=== PATIENT | male | born 1940 | race Caucasian/White ===

== ENCOUNTER 2019-12-19 08:48 | Outpatient (CLI) | payer MEDICARE, BC ==
--- NOTE | 2019-12-19 10:07 | MRI ---
EXAM: MRI of the pelvis/prostate without and with contrast HISTORY: Prostate cancer COMPARISON: None TECHNIQUE: Multiplanar multisequence MR images were obtained of the pelvis without and with IV contra st. Evaluation of this exam was performed with a [employer] workstation. FINDINGS: Central gland: Moderate hypertrophy of the central gland consistent with BPH. Prostate volume is neal mated at 36 mL No suspicious low T2 signal lesion is seen. Peripheral zone: High T1 signal is seen before contrast consistent with blood products from recent bi opsy. No restricted diffusion is seen. No low signal on ADC map. Seminal vesicles: Intact without abnormality Neurovascular bundles: Intact Pelvic lymph nodes: No pelvic adenopathy Other visualized intrapelvic structures: There is a 2.2 cm right inguinal hernia containing small bow el. Osseous structures: No marrow signal abnormality IMPRESSION: 1. PI-RADS Category 2-low likelihood that a clinically significant cancer is present.. This exam is s lightly limited secondary to retained blood products in the peripheral zone of the prostate. 2. Right inguinal hernia
== END 2019-12-19 08:49 | disposition home or self-care (01) ==
LOC: TBSIIMAG 08:48
PROVIDERS: ATTEND Urology
DX: C61 Malignant neoplasm of prostate (principal)
CPT/HCPCS: 72197; 82565

== ENCOUNTER 2022-02-11 09:56 | Outpatient (CLI) | payer MEDICARE | END 2022-02-11 09:57 | disposition home or self-care (01) | LOC: BICCT 09:56 | PROVIDERS: ATTEND Urology | DX: R31.0 Gross hematuria (principal); N28.1 Cyst of kidney, acquired; K86.89 Other specified diseases of pancreas; I77.811 Abdominal aortic ectasia; R93.421 Abnormal radiologic findings on diagnostic imaging of right kidney | CPT/HCPCS: 74176 ==

== ENCOUNTER 2023-10-04 10:48 | Outpatient (CLI) | payer MEDICARE ==
[2023-10-04 12:02] LABS: #Eosinphils 0.46 10x3/uL (0.0-0.5); #Neutrophils 4.21 10x3/uL (1.5-8.4); %Basophils 1.5 % (0.0-2.0); %Lymphocytes 17.8 % (18.0-47.0); %Monocytes 9.1 % (0.0-10.0); %Neutrophils 64.3 % (40.0-75.0); Hematocrit 30.4 % (38.8-50.0); Hemoglobin 9.7 g/dL (13.5-17.5); Mean Corpuscular HGB CONC 31.9 g/dL (32.0-36.0); Mean Corpuscular Hemoglobin 24.6 pg (27.0-33.0); Mean Platelet Volume 10.4 fl (7.4-10.4); Platelet Count 165 10x3/uL (150-450); RBC Distribution Width 15.9 % (11.5-14.5); Red Blood Cell (RBC) Count 3.95 10x6/uL (4.32-5.72); White Blood Cell (WBC) Count 6.6 10x3/uL (3.5-10.5)
[2023-10-04 12:32] LABS: ALT (SGPT) 13 U/L (8-55); AST (SGOT) 16 U/L (5-34); Albumin 3.5 g/dL (3.4-4.8); Alkaline Phosphatase 92 U/L (40-110); Anion Gap 16 mmol/L (10-20); BUN (Urea Nitrogen) 57 mg/dL (8.4-25.7); Bilirubin, Total 0.3 mg/dL (0.2-1.2); Calc. Creatinine Clearance 0 mL/min (70-130); Calcium 9.5 mg/dL (7.8-10.44); Carbon Dioxide 23 mmol/L (23-31); Chloride 105 mmol/L (98-107); Estimated GFR 27; Globulin 3.7 g/dL (2.4-3.5); Glucose 104 mg/dL (83-110); Potassium 3.9 mmol/L (3.5-5.1); Protein, Total 7.2 g/dL (5.8-8.1); Sodium 140 mmol/L (136-145)
== END 2023-10-04 10:49 | disposition home or self-care (01) ==
LOC: LABBT 10:48
PROVIDERS: ATTEND Surgery
DX: Z01.818 Encounter for other preprocedural examination (principal); K40.90 Unilateral inguinal hernia, without obstruction or gangrene, not specified as recurrent
CPT/HCPCS: 80053; 85025; 93005; 93010

== ENCOUNTER → 2023-10-07 | Day surgery (SDC) | payer MEDICARE ==
[2023-10-04 11:16] VITALS: BMI 26.6
[~2023-10-07] MED LIST: Bupivacaine 0.25% HCL 30 ML VIAL ONE; CEFAZOLIN 2 GM VIAL ONE; Dexamethasone 4 mg/ml Vial ONE; EPINEPHrine 1 MG/ML VIAL ONE; Esmolol 100 MG/10 ML VIAL ONE; Etomidate 40 MG (20 mL) VIAL ONE; Famotidine/PF 20 mg/2ml Vial ONE; Lidocaine 1% PF 5 ML VIAL ONE; Ondansetron PF 4 MG/2 ML Vial ONE; PROPOFOL 20 ML ONE; Rocuronium Bromide 10 MG/ML (10ML VIAL) ONE; SUGAMMADEX SODIUM 200 MG/2 ML VIAL ONE; Sodium Chloride 0.9% 100 ML ONE; fentaNYL 50 mcg/mL 1 mL Vial ONE; fentaNYL PF 100 MCG/2 ML SYRINGE ONE
== END | disposition home or self-care (01) ==
LOC: SDC 10:26
PROVIDERS: ATTEND Surgery
PROC: 0YU50JZ Supplement Right Inguinal Region with Synthetic Substitute, Open Approach (ICD-10-PCS; principal; 2023-10-07)
DX: K40.90 Unilateral inguinal hernia, without obstruction or gangrene, not specified as recurrent (principal); I10 Essential (primary) hypertension; E78.5 Hyperlipidemia, unspecified; K21.9 Gastro-esophageal reflux disease without esophagitis; I25.5 Ischemic cardiomyopathy; C61 Malignant neoplasm of prostate; J45.909 Unspecified asthma, uncomplicated; I71.20 Thoracic aortic aneurysm, without rupture, unspecified; Z79.82 Long term (current) use of aspirin; Z79.899 Other long term (current) drug therapy; Z79.02 Long term (current) use of antithrombotics/antiplatelets; Z87.891 Personal history of nicotine dependence; Z98.890 Other specified postprocedural states; Z88.2 Allergy status to sulfonamides
CPT/HCPCS: 49505; A6258; C1781; J0171; J3010; J0665; J1100; J2405; J2704; J3490; S0028

== ENCOUNTER 2023-12-22 12:09 | Outpatient (CLI) | payer MEDICARE | END 2023-12-22 12:10 | disposition home or self-care (01) | LOC: ULT 12:09 | PROVIDERS: ATTEND Urology | DX: N28.1 Cyst of kidney, acquired (principal); C61 Malignant neoplasm of prostate; N18.9 Chronic kidney disease, unspecified; N40.1 Benign prostatic hyperplasia with lower urinary tract symptoms; R35.0 Frequency of micturition; R35.1 Nocturia; N13.9 Obstructive and reflux uropathy, unspecified; N39.43 Post-void dribbling | CPT/HCPCS: 76770 ==

== ENCOUNTER 2025-04-28 14:48 | Inpatient (IN) | payer MEDICARE ==
[2025-04-28 15:19] LABS: Analyzer IN Cardio ER; Base Excess -18.2 mEq/L (-2.0 to +3.0); Calcium, Ionized (venous) 1.02 mmol/L (1.16-1.32); Chloride (VBG) 89 mmol/L (98-106); Hematocrit-VBG 33 % (42.0-52.0); Hemoglobin (Hb) 11.3 g/dL (12.6-17.4); Potassium (VBG) 4.40 mmol/L (3.70-5.30); Sodium 129 mmol/L (133-146)
[2025-04-28 15:22] LABS: Actual Bicarbonate (HCO3v) 10.8 mEq/L (22-28)
[2025-04-28] MEDS ORDERED: EPINEPHrine 1 MG/10 ML Abboject SYRINGE ONE (15:32)
[2025-04-28] MEDS ORDERED: Etomidate 40 MG (20 mL) VIAL ONE (15:34)
[2025-04-28] MEDS ORDERED: Rocuronium Bromide 10 MG/ML (10ML VIAL) ONE (15:34)
[2025-04-28] MEDS ORDERED: Norepinephrine 8 MG/0.9% NS 250 ML ONE (15:39)
[2025-04-28 15:48] LABS: #Basophils 0.06 10x3/uL (0.0-0.2); #Eosinophils 0.09 10x3/uL (0.0-0.7); #Monocytes 0.65 10x3/uL (0.11-0.59); #Neutrophils 18.43 10x3/uL (1.40-6.50); %Basophils 0.3 % (0.0-1.0); %Eosinophils 0.4 % (0.0-10.0); %Lymphocytes 5.4 % (21.0-51.0); %Monocytes 3.0 % (0.0-10.0); %Neutrophils 86.3 % (42.0-75.0); Hematocrit 33.0 % (42.0-52.0); Hemoglobin 10.1 g/dL (14.0-18.0); Mean Corpuscular Hemoglobin 29.4 pg (27.0-31.0); Mean Corpuscular Volume 95.9 fL (78.0-98.0); Platelet Count 130 10x3/uL (130-400); Red Blood Cell (RBC) Count 3.44 mill/uL (4.70-6.10); White Blood Cell (WBC) Count 21.38 10x3/uL (4.8-10.8)
[2025-04-28] MEDS ORDERED: Albuterol 2.5 MG (3 mL) NEB ONE (15:56)
[2025-04-28] MEDS ORDERED: Albuterol 2.5 MG (0.5 mL) NEB ONE (15:56)
[2025-04-28 15:59] LABS: Lipase 1143 U/L (8-78)
[2025-04-28] MEDS ORDERED: Dextrose 50% Abboject 50 ML SYRINGE ONE (15:59)
[2025-04-28 16:00] LABS: ALT (SGPT) 992 U/L (Less than 45); AST (SGOT) 1614 U/L (11-34); Albumin 2.3 g/dL (3.1-4.5); Alkaline Phosphatase 147 U/L (40-110); Anion Gap 40 mmol/L (10-20); BUN (Urea Nitrogen) 87 mg/dL (8.4-25.7); Bilirubin, Total 3.1 mg/dL (0.3-1.2); Calc. Creatinine Clearance 0 mL/min (70-130); Calcium 8.3 mg/dL (7.8-10.44); Carbon Dioxide 8 mmol/L (23-31); Chloride 91 mmol/L (98-107); Globulin 3.7 g/dL (2.4-3.5); Glucose 42 mg/dL (83-110); Potassium 4.6 mmol/L (3.5-5.1); Sodium 134 mmol/L (136-145)
[2025-04-28] MEDS ORDERED: Sodium Bicarb 50 MEQ/50 ML Abboject 8.4% SYRINGE ONE (16:01)
[2025-04-28 16:04] LABS: Bacteria/HPF Rare-Few HPF (None Seen); CAUTI Indications for Culture Alt mental st,lethar; Glucose, Urine (Dipstick) Normal (Negative); Leukocyte Negative Leu/uL (Negative); Protein, Urine (Dipstick) 30 mg/dL (Neg-Trace); RBC/HPF 0-3 HPF (0-3); Specific Gravity, Urine 1.016 (1.002-1.036); WBC/HPF 0-3 HPF (0-3)
[2025-04-28 16:05] LABS: Urine Culture Reflex No No
[2025-04-28 16:14] LABS: Analyzer IN Cardio ER; Base Excess (BEa) -13.6 mEq/L (-2.0 to +3.0); CO2 Tension 33.0 mmHg (35.0-45.0); Calcium, Ionized (arterial) 0.91 mmol/L (1.12-1.30); Hematocrit-ABG 27 % (42.0-52.0); Hemoglobin (Hb) 9.3 g/dL (14.0-18.0); O2 Tension (PaO2), arterial 274.2 mmHg (> 60.0); Potassium - ABG Lab 4.27 mmol/L (3.70-5.30); pH, Arterial 7.214 (7.35-7.45)
[2025-04-28 16:16] LABS: Actual Bicarbonate (HCO3a) 13.0 mEq/L (22-28); Puncture Site Right Radial artery
[2025-04-28] MEDS ORDERED: Cefepime 2 GM VIAL ONE (16:20)
[2025-04-28 16:46] LABS: INR-International Normal Ratio 2.2; Prothrombin Time 24.7 sec (12.0-14.7)
[2025-04-28 16:47] LABS: PTT 32.9 sec (22.9-36.1)
[2025-04-28] MEDS ORDERED: Ondansetron PF 4 MG/2 ML Vial IVP PRN (17:43)
[2025-04-28 19:05] LABS: Platelet Count 95 10x3/uL (130-400)
[2025-04-28 19:16] LABS: INR-International Normal Ratio 3.7; Prothrombin Time 36.9 sec (12.0-14.7)
[2025-04-28 19:17] LABS: PTT 51.1 sec (22.9-36.1)
[2025-04-28 19:18] LABS: CRP, High Sensitivity at Bryan 11.09 mg/dL (< or = 0.5)
[2025-04-28 19:19] LABS: CK (CPK) 289.0 U/L (30-200)
[2025-04-28 19:21] LABS: Fibrinogen 102 mg/dL (253-463)
[2025-04-28] MEDS: Vasopressin In 0.9 % NaCl 100 ML IV SCH (19:30)
[2025-04-28 19:33] LABS: D-Dimer Test Greater than 20.00 mcg/mL (0.27-0.43)
[2025-04-28] MEDS: Albumin 25% 25 GM (100 mL) BOT IVPB SCH (20:31)
[2025-04-28] MEDS: Dextrose 50% Abboject 50 ML SYRINGE SLOW IVP PRN (22:05)
[2025-04-28] MEDS ORDERED: Glucagon 1 MG/ML KIT IM PRN (22:07)
[2025-04-28 22:51] VITALS: BMI 26.9
[2025-04-28] MEDS ORDERED: Vancomycin Dose by Levels Sliding Scale (Wt 71-99) FS SCH (23:30)
[2025-04-28 23:34] LABS: ALT (SGPT) 1387 U/L (Less than 45); AST (SGOT) 3497 U/L (11-34); Albumin 2.1 g/dL (3.1-4.5); Alkaline Phosphatase 127 U/L (40-110); Anion Gap 38 mmol/L (10-20); BUN (Urea Nitrogen) 78 mg/dL (8.4-25.7); Bilirubin, Total 3.2 mg/dL (0.3-1.2); Calc. Creatinine Clearance 12 mL/min (70-130); Calcium 7.1 mg/dL (7.8-10.44); Carbon Dioxide 8 mmol/L (23-31); Chloride 94 mmol/L (98-107); Globulin 2.5 g/dL (2.4-3.5); Glucose 136 mg/dL (83-110); Potassium 5.5 mmol/L (3.5-5.1); Sodium 134 mmol/L (136-145)
[2025-04-28] MEDS: Vancomycin 1.5 GM / NS 500ML VIAL-2-BAG IVPB SCH (23:36)
[2025-04-28] MEDS: Dextrose 50% Abboject 50 ML SYRINGE ONE (23:37)
[2025-04-28 23:42] LABS: HBSAB Concentration Less than 8.00 mIU/mL; Hep B Core Total Ab NONREACTIVE (NonReactive); Hep B Core Total Index 0.22 S/CO (0-0.79); Hep B Surf Ag NONREACTIVE S/CO (NonReactive); Hep C IgG Ab NONREACTIVE S/CO (NonReactive); Hep C Index 0.38 S/CO (0-0.79)
[2025-04-28] MEDS: Sodium Bicarb 50 MEQ/50 ML Abboject 8.4% SYRINGE IVP SCH (23:50)
[2025-04-29] MEDS: Norepinephrine 8 MG/0.9% NS 250 ML IVPB SCH (00:10)
[2025-04-29] MEDS ORDERED: Heparin 10,000 UNITS/ 10 ML VIAL FS SCH (00:30)
[2025-04-29] MEDS ORDERED: Heparin 10,000 UNITS/ 10 ML VIAL FS PRN (00:30)
[2025-04-29 01:00] LABS: Base Excess (BEa) -15.8 mEq/L (-2.0 to +3.0); CO2 Tension 33.3 mmHg (35.0-45.0); Calcium, Ionized (arterial) 0.81 mmol/L (1.12-1.30); Hematocrit-ABG 24 % (42.0-52.0); Hemoglobin (Hb) 8.1 g/dL (14.0-18.0); O2 Tension (PaO2), arterial 368.0 mmHg (> 60.0); Potassium - ABG Lab 5.33 mmol/L (3.70-5.30)
[2025-04-29] MEDS: Phenylephrine 40 MG/NS 250 ML 250 ML IVPB SCH (01:01)
[2025-04-29 01:02] LABS: ALV-art Gradient 303.375 mmHg (0-20); Actual Bicarbonate (HCO3a) 11.6 mEq/L (22-28); Puncture Site Arterial Line; pH, Arterial 7.159 (7.35-7.45)
[2025-04-29] MEDS: Sodium Bicarb 50 MEQ/50 ML Abboject 8.4% SYRINGE IVP SCH ×2 (01:15→01:45)
[2025-04-29] MEDS: Sodium Bicarb 50 MEQ/50 ML Abboject 8.4% SYRINGE ONE (01:45)
[2025-04-29] MEDS: Hydrocortisone Sod Succ/PF 100 mg/2 ml Vial ONE (01:55)
[2025-04-29] MEDS: Hydrocortisone Sod Succ/PF 100 mg/2 ml Vial IVP SCH (02:15)
[2025-04-29 04:57] LABS: INR-International Normal Ratio 5.9; PTT 78.6 sec (22.9-36.1); Prothrombin Time 53.2 sec (12.0-14.7)
[2025-04-29 04:58] LABS: #Basophils 0.06 10x3/uL (0.0-0.2); #Eosinophils Less than 0.03 10x3/uL (0.0-0.7); #Monocytes 0.88 10x3/uL (0.11-0.59); #Neutrophils 19.59 10x3/uL (1.40-6.50); %Basophils 0.3 % (0.0-1.0); %Eosinophils 0.0 % (0.0-10.0); %Lymphocytes 4.9 % (21.0-51.0); %Monocytes 3.9 % (0.0-10.0); %Neutrophils 86.2 % (42.0-75.0); Hematocrit 24.6 % (42.0-52.0); Hemoglobin 7.4 g/dL (14.0-18.0); Mean Corpuscular Hemoglobin 30.1 pg (27.0-31.0); Mean Corpuscular Volume 100.0 fL (78.0-98.0); Platelet Count 37 10x3/uL (130-400); Red Blood Cell (RBC) Count 2.46 mill/uL (4.70-6.10); White Blood Cell (WBC) Count 22.74 10x3/uL (4.8-10.8)
[2025-04-29 05:04] LABS: CRP, High Sensitivity at Bryan 6.53 mg/dL (< or = 0.5)
[2025-04-29 05:07] LABS: Fibrinogen 65 mg/dL (253-463)
[2025-04-29 05:13] LABS: Lipase 497 U/L (8-78)
[2025-04-29 05:15] LABS: ALT (SGPT) 2196 U/L (Less than 45); AST (SGOT) Greater than 4001 U/L (11-34); Albumin 2.1 g/dL (3.1-4.5); Alkaline Phosphatase 123 U/L (40-110); Anion Gap 43 mmol/L (10-20); BUN (Urea Nitrogen) 72 mg/dL (8.4-25.7); Bilirubin, Total 3.4 mg/dL (0.3-1.2); Calc. Creatinine Clearance 13 mL/min (70-130); Calcium 7.2 mg/dL (7.8-10.44); Carbon Dioxide 9 mmol/L (23-31); Cardiac Risk 6.2 (Less than 4.5); Chloride 96 mmol/L (98-107); Cholesterol 37 mg/dl (< 200 Desired); Globulin 2.1 g/dL (2.4-3.5); Glucose 60 mg/dL (83-110); HDL Cholesterol 6 mg/dL (>60 Neg Risk); Potassium 6.0 mmol/L (3.5-5.1); Sodium 142 mmol/L (136-145); Triglycerides 174 mg/dL (Less than 150)
[2025-04-29] MEDS ORDERED: Hydrocortisone Sod Succ/PF 100 mg/2 ml Vial IVP SCH (08:00)
[2025-04-29] MEDS ORDERED: Aspirin 81 mg Enteric Coated Tablet PO SCH (09:00)
[2025-04-29] MEDS ORDERED: Mupirocin 1 GM TUBE NASAL DECOLONIZATION NASAL SCH (09:00)
[2025-04-29] MEDS ORDERED: Vancomycin 1 GM in Premix 1 BAG IVPB SCH (09:00)
[2025-04-29] MEDS ORDERED: Pantoprazole 40 MG VIAL IVP SCH (09:00)
[2025-05-03] MEDS ORDERED: FLU (Fluad Triv) 25-26 (65UP)PF 45 MCG/0.5 ML Syringe IM ONE (03:15)
[2025-05-03] MEDS ORDERED: PNEUMOC 20-VAL CONJ-DIP CRM/PF 0.5 ML SYRINGE IM ONE (09:00)
== END 2025-04-29 05:00 | disposition expired | DRG 871 ==
LOC: ERS 14:48 → CCU 17:49
PROVIDERS: ADMIT Student in an Organized Health Care Education/Training Program; ATTEND Student in an Organized Health Care Education/Training Program
PROC: 5A1935Z Respiratory Ventilation, Less than 24 Consecutive Hours (ICD-10-PCS; principal; 2025-04-28)
PROC: 0BH17EZ Insertion of Endotracheal Airway into Trachea, Via Natural or Artificial Opening (ICD-10-PCS; 2025-04-28)
PROC: 0T9B70Z Drainage of Bladder with Drainage Device, Via Natural or Artificial Opening (ICD-10-PCS; 2025-04-28)
PROC: 0DH67UZ Insertion of Feeding Device into Stomach, Via Natural or Artificial Opening (ICD-10-PCS; 2025-04-28)
PROC: 5A1D70Z Performance of Urinary Filtration, Intermittent, Less than 6 Hours Per Day (ICD-10-PCS; 2025-04-28)
PROC: 30233L1 Transfusion of Nonautologous Fresh Plasma into Peripheral Vein, Percutaneous Approach (ICD-10-PCS; 2025-04-28)
PROC: 30233K1 Transfusion of Nonautologous Frozen Plasma into Peripheral Vein, Percutaneous Approach (ICD-10-PCS; 2025-04-28)
PROC: 30233M1 Transfusion of Nonautologous Plasma Cryoprecipitate into Peripheral Vein, Percutaneous Approach (ICD-10-PCS; 2025-04-28)
PROC: 03HY32Z Insertion of Monitoring Device into Upper Artery, Percutaneous Approach (ICD-10-PCS; 2025-04-29)
PROC: 4A133B1 Monitoring of Arterial Pressure, Peripheral, Percutaneous Approach (ICD-10-PCS; 2025-04-29)
PROC: 4A133J1 Monitoring of Arterial Pulse, Peripheral, Percutaneous Approach (ICD-10-PCS; 2025-04-29)
PROC: 4A133R1 Monitoring of Arterial Saturation, Peripheral, Percutaneous Approach (ICD-10-PCS; 2025-04-29)
PROC: 30233N1 Transfusion of Nonautologous Red Blood Cells into Peripheral Vein, Percutaneous Approach (ICD-10-PCS; 2025-04-29)
PROC: 30243J1 Transfusion of Nonautologous Serum Albumin into Central Vein, Percutaneous Approach (ICD-10-PCS; 2025-04-29)
PROC: 3E043XZ Introduction of Vasopressor into Central Vein, Percutaneous Approach (ICD-10-PCS; 2025-04-29)
PROC: 3E04329 Introduction of Other Anti-infective into Central Vein, Percutaneous Approach (ICD-10-PCS; 2025-04-29)
DX: A41.9 Sepsis, unspecified organism (principal); G93.41 Metabolic encephalopathy; I21.A1 Myocardial infarction type 2; J96.01 Acute respiratory failure with hypoxia; R65.21 Severe sepsis with septic shock; K85.90 Acute pancreatitis without necrosis or infection, unspecified; J18.9 Pneumonia, unspecified organism; K72.00 Acute and subacute hepatic failure without coma; K81.0 Acute cholecystitis; N17.9 Acute kidney failure, unspecified; E87.20 Acidosis, unspecified; K21.9 Gastro-esophageal reflux disease without esophagitis; N18.30 Chronic kidney disease, stage 3 unspecified; I12.9 Hypertensive chronic kidney disease with stage 1 through stage 4 chronic kidney disease, or unspecified chronic kidney disease; N40.0 Benign prostatic hyperplasia without lower urinary tract symptoms; E16.2 Hypoglycemia, unspecified; I48.91 Unspecified atrial fibrillation; E78.5 Hyperlipidemia, unspecified; D63.1 Anemia in chronic kidney disease; E86.0 Dehydration; Z88.2 Allergy status to sulfonamides; Z86.73 Personal history of transient ischemic attack (TIA), and cerebral infarction without residual deficits; Z85.46 Personal history of malignant neoplasm of prostate; Z95.2 Presence of prosthetic heart valve; Z98.890 Other specified postprocedural states
CPT/HCPCS: 31500; 36416; 36430; 36556; 36600; 51702; 70450; 71045; 71250; 74177; 76705; 80053; 80061; 81001; 82533; 82550; 82805; 83605; 83690; 83880; 84145; 84443; 84484; 85025; 85049; 85300; 85362; 85384; 85610; 85730; 86141; 86704; 86706; 86803; 86850; 86900; 86901; 87040; 87077; 87186; 87340; 87428; 93005; 94002; 94003; 94644; 94660; 94760; 96361; 96365; 96374; 96375; 99292; J0165; J0692; J1644; J1720; J2060; J2185; J2250; J2272; J7030; J7070; J7611; J7999; P9012; P9016; P9047; P9059